=== PATIENT | male | born 1950 | race Hispanic/Latino ===

== ENCOUNTER → 2020-12-03 | Outpatient (CLI) | payer OTHER | END | disposition home or self-care (01) | LOC: OIH 14:49 → EDUNIT# 15:00 | PROVIDERS: ATTEND Internal Medicine Cardiovascular Disease | DX: Z13.6 Encounter for screening for cardiovascular disorders (principal); K76.0 Fatty (change of) liver, not elsewhere classified | CPT/HCPCS: 75571 ==